=== PATIENT | female | born 1965 | race Caucasian/White ===

== ENCOUNTER 2017-06-22 07:55 | Day surgery (SDC) | payer OTHER, MEDICAID ==
[2017-06-22] MEDS ORDERED: FENTAnyl 50 MCG/ML VIAL (10:14)
[2017-06-22] MEDS ORDERED: MIDAZOLAM 1 MG/ML 2 ML INJ ×2 (10:15)
== END 2017-06-22 11:02 | disposition home or self-care (01) ==
LOC: GIL 07:55
DX: Z12.11 Encounter for screening for malignant neoplasm of colon (principal); K64.8 Other hemorrhoids
CPT/HCPCS: 45378

== ENCOUNTER 2018-02-15 09:24 | Day surgery (SDC) | payer OTHER ==
[2018-02-15] MEDS ORDERED: CLINDAMYCIN 900 MG/D5W (PMX) 50 ML IVPB ×2 (10:30→12:08)
[2018-02-15] MEDS ORDERED: SOD CHLORIDE 0.9% 1,000 ML IV (10:30)
[2018-02-15] MEDS ORDERED: PROPOFOL 20 ML (10:53)
[2018-02-15] MEDS ORDERED: ROCURONIUM 50 MG INJ (10:53)
[2018-02-15] MEDS ORDERED: ROPIVACAINE 0.5 % 30 ML VIAL (10:53)
[2018-02-15] MEDS ORDERED: LIDOCAINE 2% (SDV) 5 ML INJ (10:53)
[2018-02-15] MEDS ORDERED: MIDAZOLAM 1 MG/ML 2 ML INJ (10:53)
[2018-02-15] MEDS ORDERED: SUGAMMADEX SODIUM 200 MG/2 ML VIAL IV ×2 (11:02→12:28)
[2018-02-15] MEDS ORDERED: INDOMETHACIN 50 MG SUPP PR (11:26)
[2018-02-15] MEDS ORDERED: BUPIVACAINE 0.25% (MPF) 30 ML INJ (11:28)
[2018-02-15] MEDS ORDERED: ONDANSETRON 4 MG INJ ×2 (12:05→12:58)
[2018-02-15] MEDS: BUPIVACAINE 0.25% (MPF) 30 ML INJ (12:06)
[2018-02-15] MEDS: HYDROmorphONE 1 MG/5 ML IV SYRINGE IV ×5 (12:56→13:28)
[2018-02-15] MEDS ORDERED: HYDROCODONE/APAP (5/325) TAB PO (13:00)
[2018-02-15] MEDS ORDERED: HYDROmorphONE 1 MG/5 ML IV SYRINGE IV (13:00)
[2018-02-15] MEDS: ONDANSETRON 4 MG INJ IV (13:17)
[2018-02-15] MEDS ORDERED: IBUPROFEN 800 MG TAB (14:29)
[2018-02-15] MEDS: IBUPROFEN 800 MG TAB PO (14:31)
== END 2018-02-15 14:48 | disposition home or self-care (01) ==
LOC: SDS 09:24
DX: K80.10 Calculus of gallbladder with chronic cholecystitis without obstruction (principal); K76.0 Fatty (change of) liver, not elsewhere classified; K76.3 Infarction of liver; Q27.39 Arteriovenous malformation, other site
CPT/HCPCS: 47379; 84703; 88304; 88307

== ENCOUNTER 2018-02-16 21:10 | Inpatient (IN) | payer OTHER ==
[2018-02-16] MEDS: KETOROLAC 30 MG INJ IV (22:15)
[2018-02-16] MEDS: DIPHENHYDRAMINE 50 MG INJ IV (22:15)
[2018-02-16] MEDS: HYDROmorphONE 1 MG/ML SYG IV (22:15)
[2018-02-16] MEDS: ONDANSETRON 4 MG INJ IV (22:15)
[2018-02-16] MEDS: SODIUM CHLORIDE 0.9% 1L BAG IV* (22:25)
[2018-02-16] MEDS: SOD CHLORIDE 0.9% 1,000 ML IV (22:25)
[2018-02-16] MEDS: ACETAMINOPHEN 500 MG TAB PO (22:26)
[2018-02-16 22:33] LABS: ADD MAN DIFF? NO
[2018-02-16] MEDS: LEVOFLOXACIN 500MG/D5W (PMX) 100 ML IVPB (22:35)
[2018-02-16 22:36] LABS: WHITE BLOOD COUNT 13.7 10^3/ul (4.8-10.8)
[2018-02-16 22:36] LABS: BASOPHILS % 0.2 % (0.0-2.0); EOSINOPHILS % 0.3 % (0.0-7.0); HEMATOCRIT 36.9 % (37.0-47.0); HEMOGLOBIN 12.4 g/dl (12.0-16.0); LYMPHOCYTES # 1.7 10^3/ul (0.8-2.9); LYMPHOCYTES % 12.1 % (15.0-51.0); MEAN CORPUSCULAR HEMOGLOBIN 30.7 pg (29.0-33.0); MEAN CORPUSCULAR HGB CONC 33.6 g/dl (32.0-37.0); MEAN CORPUSCULAR VOLUME 91.3 fl (82.0-101.0); MONOCYTE # 0.5 10^3/ul (0.3-0.9); MONOCYTES % 3.9 % (0.0-11.0); NEUTROPHIL # 11.4 10^3/ul (1.6-7.5); NEUTROPHILS % 83.1 % (39.0-77.0); PLATELET COUNT 187 10^3/UL (140-415); RED BLOOD COUNT 4.04 10^6/ul (4.20-5.40); RED CELL DISTRIBUTION WIDTH 13.1 % (11.5-14.5)
[2018-02-16 22:52] LABS: LACTIC ACID 1.1 mmol/L (0.5-2.0)
[2018-02-16 22:54] LABS: ALANINE AMINOTRANSFERASE 246 IU/L (13-69); ALBUMIN 3.6 g/dl (3.3-4.9); ALBUMIN/GLOBULIN RATIO 1.05; ALKALINE PHOSPHATASE 82 IU/L (42-121); AMYLASE 66 U/L (11-123); ANION GAP 9 (5-13); ASPARTATE AMINO TRANSFERASE 181 IU/L (15-46); BILIRUBIN,INDIRECT 0.3 mg/dl (0-1.1); BILIRUBIN,TOTAL 0.3 mg/dl (0.2-1.3); BLOOD UREA NITROGEN 8 mg/dl (7-20); CALCIUM 9.3 mg/dl (8.4-10.2); CARBON DIOXIDE 25 mmol/L (21-31); CHLORIDE 103 mmol/L (97-110); CREATININE 0.73 mg/dl (0.44-1.00); GLUCOSE 143 mg/dl (70-220); LIPASE 131 U/L (23-300); POTASSIUM 3.8 mmol/L (3.5-5.1); SODIUM 137 mmol/L (135-144)
[2018-02-16 22:55] LABS: INR 0.94; PROTIME 12.7 Sec (11.9-14.9)
[2018-02-16 22:56] LABS: PARTIAL THROMBOPLASTIN TIME 28.6 Sec (23.0-35.0)
[2018-02-16 23:05] LABS: TROPONIN-I < 0.012 ng/ml (0.000-0.120)
[2018-02-16] MEDS: SOD CHLORIDE 0.9% 100 ML (23:14)
[2018-02-16] MEDS: IOHEXOL 300MG/ML 150 ML BTL (23:15)
[2018-02-17] MEDS: VANCOMYCIN 1 GM (PMX) 250 ML IVPB (00:46)
[2018-02-17] MEDS ORDERED: VANCOMYCIN IV PER PHARMACY XX (02:30)
[2018-02-17] MEDS ORDERED: ONDANSETRON 4 MG INJ IV (02:30)
[2018-02-17] MEDS: DIPHENHYDRAMINE 50 MG INJ IV ×3 (05:11→17:42)
[2018-02-17] MEDS: HYDROmorphONE 1 MG/ML SYG IV ×4 (05:11→19:31)
[2018-02-17 05:19] LABS: UR RBC 0 /HPF (0-5); UR WBC 1 /HPF (0-5)
[2018-02-17 05:27] LABS: ADD UMIC NO; UR ASCORBIC ACID NEGATIVE (NEGATIVE); UR BILIRUBIN (Dip) NEGATIVE (NEGATIVE); UR BLOOD (Dip) NEGATIVE (NEGATIVE); UR CLARITY CLEAR (CLEAR); UR COLOR STRAW (YELLOW); UR GLUCOSE (Dip) NEGATIVE (NEGATIVE); UR KETONES (Dip) NEGATIVE (NEGATIVE); UR LEUKOCYTE ESTERASE (Dip) NEGATIVE Leu/ul (NEGATIVE); UR NITRITE (Dip) NEGATIVE (NEGATIVE); UR SPECIFIC GRAVITY (Dip) 1.027 (1.003-1.030); UR TOTAL PROTEIN (Dip) NEGATIVE (NEGATIVE); UR UROBILINOGEN (Dip) NEGATIVE (NEGATIVE)
[2018-02-17] MEDS: VANCOMYCIN 1.25 GM in SOD CHLORIDE 0.9% 250 ML IVPB ×2 (09:41→21:13)
[2018-02-17] MEDS ORDERED: traMADol 50 MG TAB NGT (11:30)
[2018-02-17] MEDS: traMADol 50 MG TAB PO ×2 (12:23→18:52)
[2018-02-17] MEDS ORDERED: HYDROmorphONE 0.5 MG/0.5 ML SYG IV (13:02)
[2018-02-17] MEDS ORDERED: HYDROmorphONE 1 MG/ML SYG IV (13:30)
[2018-02-17] MEDS: HYDROmorphONE 0.5 MG/0.5 ML SYG IV (13:31)
[2018-02-17] MEDS ORDERED: ACETAMINOPHEN 500 MG TAB PO (15:00)
[2018-02-17] MEDS: ACETAMINOPHEN 325 MG TAB PO (15:40)
[2018-02-18] MEDS: LEVOFLOXACIN 500MG/D5W (PMX) 100 ML IVPB (00:05)
[2018-02-18] MEDS: traMADol 50 MG TAB PO ×3 (02:26→18:07)
[2018-02-18] MEDS: DIPHENHYDRAMINE 50 MG INJ IV ×2 (03:14→13:57)
[2018-02-18] MEDS: HYDROmorphONE 1 MG/ML SYG IV ×4 (04:50→19:15)
[2018-02-18] MEDS: VANCOMYCIN 1.25 GM in SOD CHLORIDE 0.9% 250 ML IVPB (08:44)
[2018-02-18] MEDS: BISACODYL (EC) 5 MG TAB PO (11:27)
[2018-02-18] MEDS ORDERED: NA PHOSPHATE/BIPHOS 133 ML ENEMA PR (11:30)
[2018-02-18] MEDS: HYDROmorphONE 0.5 MG/0.5 ML SYG IV ×2 (18:06→21:19)
[2018-02-18] MEDS: ACETAMINOPHEN 325 MG TAB PO (19:50)
[2018-02-18 20:30] LABS: VANCOMYCIN,TROUGH 7.6 ug/ml (10.0-20.0)
[2018-02-18] MEDS: VANCOMYCIN 1.5 GM in SOD CHLORIDE 0.9% 250 ML IVPB (22:03)
[2018-02-19] MEDS: LEVOFLOXACIN 500MG/D5W (PMX) 100 ML IVPB (01:13)
[2018-02-19] MEDS: HYDROmorphONE 2 MG/ML SYG IV ×6 (03:42→21:54)
[2018-02-19] MEDS: VANCOMYCIN 1.5 GM in SOD CHLORIDE 0.9% 250 ML IVPB ×2 (09:07→21:45)
[2018-02-19] MEDS: DIPHENHYDRAMINE 50 MG INJ IV (09:18)
[2018-02-19] MEDS: MEROPENEM 500MG/50 ML (PMX) 50 ML IVPB (16:54)
[2018-02-19] MEDS ORDERED: MEROPENEM 500MG/50 ML (PMX) 50 ML IVPB (22:00)
[2018-02-20] MEDS: MEROPENEM 500MG/50 ML (PMX) 50 ML IVPB ×2 (02:10→09:10)
[2018-02-20] MEDS: HYDROmorphONE 2 MG/ML SYG IV ×3 (03:16→13:54)
[2018-02-20] MEDS: SOD CHLORIDE 0.9% 100 ML (04:59)
[2018-02-20] MEDS: IOHEXOL 350MG/ML 50 ML BTL (04:59)
[2018-02-20] MEDS: IOHEXOL 100 ML (04:59)
[2018-02-20 05:36] LABS: ADD MAN DIFF? NO
[2018-02-20 05:47] LABS: BASOPHILS % 0.4 % (0.0-2.0); EOSINOPHILS # 0.4 10^3/ul (0.0-0.5); HEMATOCRIT 32.6 % (37.0-47.0); HEMOGLOBIN 10.7 g/dl (12.0-16.0); LYMPHOCYTES # 1.6 10^3/ul (0.8-2.9); LYMPHOCYTES % 16.9 % (15.0-51.0); MEAN CORPUSCULAR HEMOGLOBIN 30.6 pg (29.0-33.0); MEAN CORPUSCULAR HGB CONC 32.8 g/dl (32.0-37.0); MEAN CORPUSCULAR VOLUME 93.1 fl (82.0-101.0); MEAN PLATELET VOLUME 10.8 fl (7.4-10.4); MONOCYTE # 0.6 10^3/ul (0.3-0.9); MONOCYTES % 6.2 % (0.0-11.0); NEUTROPHIL # 6.6 10^3/ul (1.6-7.5); NEUTROPHILS % 72.1 % (39.0-77.0); PLATELET COUNT 262 10^3/UL (140-415); RED CELL DISTRIBUTION WIDTH 13.2 % (11.5-14.5)
[2018-02-20 05:47] LABS: WHITE BLOOD COUNT 9.2 10^3/ul (4.8-10.8)
[2018-02-20 06:04] LABS: Allen Test ACCEPTAB; Arterial Base Excess 3.2 mmol/L (-3.0-3); Arterial Blood Gas Oxygen Sat 96.6 mmHG (95.0-98.0); Arterial COHb 0.3 % (0.0-3.0); Arterial Fraction of Oxyhgb 96.1 % (93.0-99.0); Arterial HCO3 27.5 mmol/L (22.0-26.0); Arterial MetHb 0.2 % (0.0-1.5); Arterial Total Hemglobin 11.4 g/dl (12.0-18.0); Arterial pCO2 41.1 mmhg (35-45); MODE NASAL CANNULA; Site Left Radial
[2018-02-20 06:13] LABS: ANION GAP 9 (5-13); BLOOD UREA NITROGEN 6 mg/dl (7-20); CALCIUM 8.7 mg/dl (8.4-10.2); CARBON DIOXIDE 26 mmol/L (21-31); CHLORIDE 104 mmol/L (97-110); CREATININE 0.59 mg/dl (0.44-1.00); GLUCOSE 111 mg/dl (70-220); POTASSIUM 4.2 mmol/L (3.5-5.1); SODIUM 139 mmol/L (135-144)
[2018-02-20] MEDS: ALBUTEROL/IPRATROPIUM (NEB) 3 ML AMP HHN ×4 (06:17→20:52)
[2018-02-20] MEDS: METHYLPREDNISOLONE 125 MG INJ IV (07:26)
[2018-02-20] MEDS: METHYLPREDNISOLONE 40 MG INJ IV ×2 (09:10→21:35)
[2018-02-20] MEDS: VANCOMYCIN 1.5 GM in SOD CHLORIDE 0.9% 250 ML IVPB ×2 (09:50→23:22)
[2018-02-20] MEDS: MIDAZOLAM 1 MG/ML 2 ML INJ (11:53)
[2018-02-20] MEDS: FENTAnyl 50 MCG/ML VIAL (11:53)
[2018-02-20] MEDS: LIDOCAINE 1% (MPF) 5 ML VIAL ×4 (12:03→12:04)
[2018-02-20] MEDS: MEROPENEM 1 GM/50ML(PMX) 50 ML IVPB ×2 (14:09→21:46)
[2018-02-20] MEDS: ACETAMINOPHEN 325 MG TAB PO (14:09)
[2018-02-20] MEDS: DIPHENHYDRAMINE 50 MG INJ IV (16:13)
[2018-02-20 20:35] LABS: VANCOMYCIN,TROUGH 10.8 ug/ml (10.0-20.0)
[2018-02-20] MEDS: traMADol 50 MG TAB PO (21:39)
[2018-02-21] MEDS: ALBUTEROL/IPRATROPIUM (NEB) 3 ML AMP HHN ×4 (01:47→19:22)
[2018-02-21 05:57] LABS: ADD MAN DIFF? NO; HEMATOCRIT 30.1 % (37.0-47.0); HEMOGLOBIN 10.1 g/dl (12.0-16.0); LYMPHOCYTES % 9.1 % (15.0-51.0); MEAN CORPUSCULAR HEMOGLOBIN 30.4 pg (29.0-33.0); MEAN CORPUSCULAR HGB CONC 33.6 g/dl (32.0-37.0); MEAN CORPUSCULAR VOLUME 90.7 fl (82.0-101.0); MEAN PLATELET VOLUME 10.3 fl (7.4-10.4); MONOCYTE # 0.3 10^3/ul (0.3-0.9); MONOCYTES % 2.4 % (0.0-11.0); NEUTROPHILS % 87.6 % (39.0-77.0); PLATELET COUNT 298 10^3/UL (140-415); RED BLOOD COUNT 3.32 10^6/ul (4.20-5.40); RED CELL DISTRIBUTION WIDTH 12.6 % (11.5-14.5)
[2018-02-21 05:57] LABS: WHITE BLOOD COUNT 11.4 10^3/ul (4.8-10.8)
[2018-02-21] MEDS: MEROPENEM 1 GM/50ML(PMX) 50 ML IVPB ×2 (06:01→14:17)
[2018-02-21 06:36] LABS: ANION GAP 11 (5-13); BLOOD UREA NITROGEN 10 mg/dl (7-20); CALCIUM 8.7 mg/dl (8.4-10.2); CARBON DIOXIDE 23 mmol/L (21-31); CHLORIDE 106 mmol/L (97-110); Estimated GFR > 60 mL/min (>60); GLUCOSE 153 mg/dl (70-220); POTASSIUM 3.6 mmol/L (3.5-5.1); SODIUM 140 mmol/L (135-144)
[2018-02-21] MEDS: METHYLPREDNISOLONE 40 MG INJ IV ×2 (08:11→21:24)
[2018-02-21] MEDS: VANCOMYCIN 1.5 GM in SOD CHLORIDE 0.9% 250 ML IVPB ×2 (09:28→21:24)
[2018-02-21] MEDS ORDERED: HYDROmorphONE 2 MG TAB PO (17:00)
[2018-02-21 17:48] LABS: ALANINE AMINOTRANSFERASE 61 IU/L (13-69); ALBUMIN 3.5 g/dl (3.3-4.9); ALBUMIN/GLOBULIN RATIO 1.09; ALKALINE PHOSPHATASE 101 IU/L (42-121); ANION GAP 11 (5-13); ASPARTATE AMINO TRANSFERASE 50 IU/L (15-46); BILIRUBIN,INDIRECT 0.2 mg/dl (0-1.1); BILIRUBIN,TOTAL 0.2 mg/dl (0.2-1.3); BLOOD UREA NITROGEN 12 mg/dl (7-20); CARBON DIOXIDE 23 mmol/L (21-31); CHLORIDE 108 mmol/L (97-110); CREATININE 0.49 mg/dl (0.44-1.00); Estimated GFR > 60 mL/min (>60); GLUCOSE 142 mg/dl (70-220); SODIUM 142 mmol/L (135-144); TOTAL PROTEIN 6.7 g/dl (6.1-8.1)
[2018-02-22] MEDS: MEROPENEM 1 GM/50ML(PMX) 50 ML IVPB ×3 (00:40→14:46)
[2018-02-22] MEDS: ALBUTEROL/IPRATROPIUM (NEB) 3 ML AMP HHN ×4 (02:36→20:26)
[2018-02-22 05:04] LABS: ADD MAN DIFF? NO; BASOPHILS % 0.1 % (0.0-2.0); HEMATOCRIT 30.4 % (37.0-47.0); HEMOGLOBIN 10.1 g/dl (12.0-16.0); LYMPHOCYTES # 1.6 10^3/ul (0.8-2.9); LYMPHOCYTES % 9.4 % (15.0-51.0); MEAN CORPUSCULAR HGB CONC 33.2 g/dl (32.0-37.0); MEAN CORPUSCULAR VOLUME 90.2 fl (82.0-101.0); MONOCYTE # 0.6 10^3/ul (0.3-0.9); MONOCYTES % 3.2 % (0.0-11.0); NEUTROPHIL # 14.4 10^3/ul (1.6-7.5); NEUTROPHILS % 84.8 % (39.0-77.0); PLATELET COUNT 323 10^3/UL (140-415); RED BLOOD COUNT 3.37 10^6/ul (4.20-5.40); RED CELL DISTRIBUTION WIDTH 13.2 % (11.5-14.5)
[2018-02-22] MEDS: ACETAMINOPHEN 325 MG TAB PO (06:48)
[2018-02-22] MEDS: METHYLPREDNISOLONE 40 MG INJ IV ×2 (08:07→22:17)
[2018-02-22] MEDS: VANCOMYCIN 1.5 GM in SOD CHLORIDE 0.9% 250 ML IVPB ×2 (08:08→22:17)
[2018-02-23] MEDS: ALBUTEROL/IPRATROPIUM (NEB) 3 ML AMP HHN ×4 (02:13→19:58)
[2018-02-23] MEDS: MEROPENEM 1 GM/50ML(PMX) 50 ML IVPB ×4 (05:07→21:32)
[2018-02-23] MEDS: VANCOMYCIN 1.5 GM in SOD CHLORIDE 0.9% 250 ML IVPB ×3 (05:58→22:05)
[2018-02-23] MEDS: METHYLPREDNISOLONE 40 MG INJ IV ×2 (11:04→20:25)
[2018-02-24] MEDS: ALBUTEROL/IPRATROPIUM (NEB) 3 ML AMP HHN ×4 (01:51→20:00)
[2018-02-24 06:18] LABS: ADD MAN DIFF? NO
[2018-02-24 06:19] LABS: BASOPHIL # 0.1 10^3/ul (0.0-0.1); BASOPHILS % 0.4 % (0.0-2.0); EOSINOPHILS % 0.1 % (0.0-7.0); HEMATOCRIT 33.7 % (37.0-47.0); HEMOGLOBIN 11.1 g/dl (12.0-16.0); LYMPHOCYTES # 2.8 10^3/ul (0.8-2.9); LYMPHOCYTES % 14.2 % (15.0-51.0); MEAN CORPUSCULAR HEMOGLOBIN 30.1 pg (29.0-33.0); MEAN CORPUSCULAR HGB CONC 32.9 g/dl (32.0-37.0); MEAN CORPUSCULAR VOLUME 91.3 fl (82.0-101.0); MEAN PLATELET VOLUME 9.7 fl (7.4-10.4); MONOCYTE # 0.6 10^3/ul (0.3-0.9); MONOCYTES % 3.1 % (0.0-11.0); NEUTROPHIL # 15.3 10^3/ul (1.6-7.5); NEUTROPHILS % 78.6 % (39.0-77.0); PLATELET COUNT 412 10^3/UL (140-415); RED BLOOD COUNT 3.69 10^6/ul (4.20-5.40); RED CELL DISTRIBUTION WIDTH 13.3 % (11.5-14.5)
[2018-02-24 06:19] LABS: WHITE BLOOD COUNT 19.4 10^3/ul (4.8-10.8)
[2018-02-24] MEDS: MEROPENEM 1 GM/50ML(PMX) 50 ML IVPB ×2 (06:19→14:53)
[2018-02-24 06:44] LABS: ANION GAP 9 (5-13); BLOOD UREA NITROGEN 11 mg/dl (7-20); CALCIUM 9.1 mg/dl (8.4-10.2); CARBON DIOXIDE 22 mmol/L (21-31); CHLORIDE 108 mmol/L (97-110); CREATININE 0.48 mg/dl (0.44-1.00); Estimated GFR > 60 mL/min (>60); GLUCOSE 122 mg/dl (70-220); POTASSIUM 4.2 mmol/L (3.5-5.1); SODIUM 139 mmol/L (135-144)
[2018-02-24] MEDS: METHYLPREDNISOLONE 40 MG INJ IV ×2 (08:19→20:16)
[2018-02-24] MEDS: VANCOMYCIN 1.5 GM in SOD CHLORIDE 0.9% 250 ML IVPB (11:46)
[2018-02-25] MEDS: ALBUTEROL/IPRATROPIUM (NEB) 3 ML AMP HHN ×4 (02:00→19:47)
[2018-02-25 06:19] LABS: ADD MAN DIFF? NO
[2018-02-25 06:41] LABS: WHITE BLOOD COUNT 18.7 10^3/ul (4.8-10.8)
[2018-02-25 06:41] LABS: BASOPHIL # 0.1 10^3/ul (0.0-0.1); BASOPHILS % 0.6 % (0.0-2.0); EOSINOPHILS % 0.2 % (0.0-7.0); HEMATOCRIT 37.2 % (37.0-47.0); HEMOGLOBIN 12.4 g/dl (12.0-16.0); LYMPHOCYTES # 2.7 10^3/ul (0.8-2.9); LYMPHOCYTES % 14.4 % (15.0-51.0); MEAN CORPUSCULAR HEMOGLOBIN 30.7 pg (29.0-33.0); MEAN CORPUSCULAR HGB CONC 33.3 g/dl (32.0-37.0); MEAN CORPUSCULAR VOLUME 92.1 fl (82.0-101.0); MEAN PLATELET VOLUME 9.9 fl (7.4-10.4); MONOCYTE # 0.6 10^3/ul (0.3-0.9); MONOCYTES % 3.3 % (0.0-11.0); NEUTROPHIL # 14.6 10^3/ul (1.6-7.5); NEUTROPHILS % 77.8 % (39.0-77.0); PLATELET COUNT 445 10^3/UL (140-415); RED BLOOD COUNT 4.04 10^6/ul (4.20-5.40); RED CELL DISTRIBUTION WIDTH 13.1 % (11.5-14.5)
[2018-02-25 07:32] LABS: ANION GAP 13 (5-13); BLOOD UREA NITROGEN 12 mg/dl (7-20); CALCIUM 9.4 mg/dl (8.4-10.2); CARBON DIOXIDE 21 mmol/L (21-31); CHLORIDE 104 mmol/L (97-110); CREATININE 0.43 mg/dl (0.44-1.00); Estimated GFR > 60 mL/min (>60); GLUCOSE 107 mg/dl (70-220); POTASSIUM 4.6 mmol/L (3.5-5.1); SODIUM 138 mmol/L (135-144)
[2018-02-25] MEDS: METHYLPREDNISOLONE 40 MG INJ IV ×2 (08:09→20:15)
[2018-02-26 05:16] LABS: ADD MAN DIFF? NO
[2018-02-26 05:24] LABS: WHITE BLOOD COUNT 21.7 10^3/ul (4.8-10.8)
[2018-02-26 05:24] LABS: BASOPHIL # 0.1 10^3/ul (0.0-0.1); BASOPHILS % 0.3 % (0.0-2.0); EOSINOPHILS # 0.1 10^3/ul (0.0-0.5); EOSINOPHILS % 0.4 % (0.0-7.0); HEMATOCRIT 36.2 % (37.0-47.0); LYMPHOCYTES # 3.6 10^3/ul (0.8-2.9); LYMPHOCYTES % 16.7 % (15.0-51.0); MEAN CORPUSCULAR HEMOGLOBIN 29.9 pg (29.0-33.0); MEAN CORPUSCULAR HGB CONC 33.1 g/dl (32.0-37.0); MEAN CORPUSCULAR VOLUME 90.3 fl (82.0-101.0); MEAN PLATELET VOLUME 9.5 fl (7.4-10.4); MONOCYTE # 0.7 10^3/ul (0.3-0.9); MONOCYTES % 3.3 % (0.0-11.0); NEUTROPHIL # 16.6 10^3/ul (1.6-7.5); NEUTROPHILS % 76.2 % (39.0-77.0); PLATELET COUNT 453 10^3/UL (140-415); RED BLOOD COUNT 4.01 10^6/ul (4.20-5.40); RED CELL DISTRIBUTION WIDTH 13.1 % (11.5-14.5)
[2018-02-26 05:44] LABS: ANION GAP 10 (5-13); BLOOD UREA NITROGEN 17 mg/dl (7-20); CALCIUM 9.1 mg/dl (8.4-10.2); CARBON DIOXIDE 21 mmol/L (21-31); CHLORIDE 107 mmol/L (97-110); Estimated GFR > 60 mL/min (>60); GLUCOSE 114 mg/dl (70-220); POTASSIUM 4.3 mmol/L (3.5-5.1); SODIUM 138 mmol/L (135-144)
[2018-02-26] MEDS: ALBUTEROL/IPRATROPIUM (NEB) 3 ML AMP HHN ×3 (08:00→21:45)
[2018-02-26] MEDS: METHYLPREDNISOLONE 40 MG INJ IV (08:25)
[2018-02-26] MEDS ORDERED: IOHEXOL 300MG/ML 150 ML BTL (18:12)
[2018-02-26] MEDS: SOD CHLORIDE 0.9% 100 ML (22:00)
[2018-02-27] MEDS: ALBUTEROL/IPRATROPIUM (NEB) 3 ML AMP HHN ×3 (01:32→13:21)
[2018-02-27 05:57] LABS: ADD MAN DIFF? NO
[2018-02-27 06:18] LABS: WHITE BLOOD COUNT 19.4 10^3/ul (4.8-10.8)
[2018-02-27 06:18] LABS: ABNORMAL IP MESSAGE 1; BASOPHIL # 0.1 10^3/ul (0.0-0.1); BASOPHILS % 0.4 % (0.0-2.0); EOSINOPHILS # 0.5 10^3/ul (0.0-0.5); EOSINOPHILS % 2.7 % (0.0-7.0); HEMATOCRIT 33.9 % (37.0-47.0); HEMOGLOBIN 11.4 g/dl (12.0-16.0); LYMPHOCYTES # 5.9 10^3/ul (0.8-2.9); LYMPHOCYTES % 30.4 % (15.0-51.0); MEAN CORPUSCULAR HEMOGLOBIN 30.7 pg (29.0-33.0); MEAN CORPUSCULAR HGB CONC 33.6 g/dl (32.0-37.0); MEAN CORPUSCULAR VOLUME 91.4 fl (82.0-101.0); MONOCYTE # 0.8 10^3/ul (0.3-0.9); MONOCYTES % 4.3 % (0.0-11.0); NEUTROPHIL # 11.4 10^3/ul (1.6-7.5); NEUTROPHILS % 58.6 % (39.0-77.0); PLATELET COUNT 400 10^3/UL (140-415); RED BLOOD COUNT 3.71 10^6/ul (4.20-5.40); RED CELL DISTRIBUTION WIDTH 13.4 % (11.5-14.5)
[2018-02-27 06:26] LABS: POSITIVE DIFF @See below
[2018-02-27 06:40] LABS: ANION GAP 9 (5-13); BLOOD UREA NITROGEN 18 mg/dl (7-20); CARBON DIOXIDE 21 mmol/L (21-31); CHLORIDE 109 mmol/L (97-110); CREATININE 0.51 mg/dl (0.44-1.00); GLUCOSE 89 mg/dl (70-220); POTASSIUM 3.9 mmol/L (3.5-5.1); SODIUM 139 mmol/L (135-144)
[2018-02-27 06:41] LABS: CALCIUM 8.6 mg/dl (8.4-10.2); Estimated GFR > 60 mL/min (>60)
[2018-02-27] MEDS: predniSONE 20 MG TAB PO (09:10)
== END 2018-02-27 15:55 | disposition home or self-care (01) | DRG 862 ==
LOC: E/R 21:10 → PP2 02-17 00:10 → 6WM 02-20 07:21
PROC: 0W9G30Z Drainage of Peritoneal Cavity with Drainage Device, Percutaneous Approach (ICD-10-PCS; principal; 2018-02-20)
DX: T81.43XA Infection following a procedure, organ and space surgical site, initial encounter (principal); K65.1 Peritoneal abscess; J18.9 Pneumonia, unspecified organism; J98.11 Atelectasis; R65.10 Systemic inflammatory response syndrome (SIRS) of non-infectious origin without acute organ dysfunction; G89.18 Other acute postprocedural pain; E66.9 Obesity, unspecified; Z68.34 Body mass index [BMI] 34.0-34.9, adult; Z88.0 Allergy status to penicillin; R06.03 Acute respiratory distress
CPT/HCPCS: 36415; 36600; 71045; 71275; 74177; 75989; 77012; 80048; 80053; 80202; 81003; 82150; 82803; 82962; 83605; 83690; 84484; 85025; 85610; 85730; 87040; 87070; 87075; 87081; 87086; 94640; 94664; 96374; 96375; 99285-25